=== PATIENT | male | born 1955 | race Caucasian/White ===

== ENCOUNTER 2021-09-25 05:15 | Inpatient (IN) | payer OTHER ==
[~2021-09-25] VITALS: Ht 180.3 cm; Wt 88.6 kg
[2021-09-25 06:00] LABS: EOSINOPHILS # (AUTO) 0.1 X10'3 (0-0.9); MEAN CORPUSCULAR HEMOGLOBIN 29.9 PG (27.0-31.0); MONOCYTES # (AUTO) 0.3 X10'3 (0-0.9); NEUTROPHILS # (AUTO) 2.7 X10'3 (1.8-7.7); WHITE BLOOD COUNT 3.6 X10'3 (4.5-11.0)
[2021-09-25 06:02] LABS: BASOPHILS % (AUTO) 0.6 % (0-1); EOSINOPHILS % (AUTO) 3.9 % (0-6); LYMPHOCYTES # (AUTO) 0.5 X10'3 (1.1-4.8); LYMPHOCYTES % (AUTO) 12.6 % (21-51); MEAN CORPUSCULAR HGB CONC 34.2 g/dL (33.0-36.5); MEAN CORPUSCULAR VOLUME 87.6 FL (78-98); MEAN PLATELET VOLUME 6.9 FL (7.4-10.4); MONOCYTES % (AUTO) 9.1 % (2-12); NEUTROPHILS % (AUTO) 73.8 % (42-75); PLATELET COUNT 239 X10'3 (140-440); RED BLOOD COUNT 5.02 X10'6 (4.70-6.10); RED CELL DISTRIBUTION WIDTH 13.5 % (11.5-14.5)
[2021-09-25 06:11] LABS: ALANINE AMINOTRANSFERASE 48 U/L (12-78); ALBUMIN 4.1 G/DL (3.4-5.0); ALBUMIN/GLOBULIN RATIO 1.2 (1.1-1.5); ALKALINE PHOSPHATASE 64 IU/L (46-116); ANION GAP 12 (8-16); ASPARTATE AMINO TRANSFERASE 22 U/L (10-37); BILIRUBIN,TOTAL 0.3 MG/DL (0.1-1.0); BLOOD UREA NITROGEN 20 MG/DL (7-18); BUN/CREATININE RATIO 19.2 (5.4-32.0); CALCIUM 8.9 MG/DL (8.5-10.1); CHLORIDE 103 MMOL/L (99-107); CREATININE 1.04 MG/DL (0.60-1.10); GLUCOSE 128 MG/DL (70-104); POTASSIUM 3.7 MMOL/L (3.5-5.1); SODIUM 140 MMOL/L (135-145); TOTAL PROTEIN 7.6 G/DL (6.4-8.2); eGFR 72 ML/MIN
--- NOTE | 2021-09-25 06:30 | NUR ---
first contact with pt. found high fowlers in bed, reports left side chest pain 0.5/10. md flaquito aware of elevated troponin. connected to monitor technician, no needs at this time.
[2021-09-25] MEDS ORDERED: potassium CL 10mEq/100ml bag 100 ML IV PRN (08:25)
[2021-09-25] MEDS ORDERED: morphine 2 MG/ML inj. syringe IV PRN (08:25)
[2021-09-25] MEDS ORDERED: magnesium 4gm in 100ml NS 100 ML IV PRN (08:25)
[2021-09-25] MEDS ORDERED: magnesium Cl slow-release 64mg tablet PO PRN (08:25)
[2021-09-25] MEDS ORDERED: PERFLUTREN PROTEIN-A MICROSPHR (Optison) 0.22 MG/ML 3ML VIAL IV ONE (08:25)
[2021-09-25] MEDS ORDERED: acetaminophen 325mg tablet PO PRN (08:25)
[2021-09-25] MEDS ORDERED: POTASSIUM BICARB 20meq eff tab 20 MEQ TABLET.EFF PO PRN ×2 (08:25)
[2021-09-25] MEDS ORDERED: magnesium 2GM in 50ml NS 50 ML IV PRN (08:25)
[2021-09-25 08:55] LABS: MAGNESIUM 2.2 MG/DL (1.5-2.4); POTASSIUM 4.1 MMOL/L (3.5-5.1)
[2021-09-25] MEDS ORDERED: ATOR20TA PO (08:59)
--- NOTE | 2021-09-25 09:25 | NUR ---
provider at bedside.
--- NOTE | 2021-09-25 09:41 | NUR ---
breakfast tray provided for pt.
[2021-09-25] MEDS ORDERED: heparin 10,000 units/1 ML INJ IV ONE (10:05)
[2021-09-25 10:20] LABS: BASOPHILS % (AUTO) 0.4 % (0-1); EOSINOPHILS % (AUTO) 0.8 % (0-6); HEMATOCRIT 44.2 % (42.0-52.0); LYMPHOCYTES # (AUTO) 0.6 X10'3 (1.1-4.8); LYMPHOCYTES % (AUTO) 12.1 % (21-51); MEAN CORPUSCULAR HEMOGLOBIN 30.1 PG (27.0-31.0); MEAN CORPUSCULAR HGB CONC 33.9 g/dL (33.0-36.5); MEAN CORPUSCULAR VOLUME 88.8 FL (78-98); MEAN PLATELET VOLUME 6.6 FL (7.4-10.4); MONOCYTES # (AUTO) 0.3 X10'3 (0-0.9); MONOCYTES % (AUTO) 7.1 % (2-12); NEUTROPHILS # (AUTO) 3.8 X10'3 (1.8-7.7); NEUTROPHILS % (AUTO) 79.6 % (42-75); PLATELET COUNT 260 X10'3 (140-440); RED BLOOD COUNT 4.98 X10'6 (4.70-6.10); RED CELL DISTRIBUTION WIDTH 13.6 % (11.5-14.5); WHITE BLOOD COUNT 4.8 X10'3 (4.5-11.0)
[2021-09-25] MEDS: heparin 25,000 UNIT/250ml bag 250 ML IV SCH (10:25)
[2021-09-25] MEDS ORDERED: ATOR10TA PO (10:26)
--- NOTE | 2021-09-25 10:30 | NUR ---
pt denies chest pain, sob.
[2021-09-25 10:32] LABS: APTT 24 SECONDS (22-32)
--- NOTE | 2021-09-25 12:00 | NUR ---
meal tray provided.
--- NOTE | 2021-09-25 12:15 | NUR ---
pt denies chest pain, sob.
--- NOTE | 2021-09-25 13:15 | NUR ---
ambulated with steady gait to/from restroom, no distress.
--- NOTE | 2021-09-25 14:10 | NUR ---
pt denies chest pain, sob.
--- NOTE | 2021-09-25 16:30 | NUR ---
pt denies chest pain, sob.
--- NOTE | 2021-09-25 17:50 | NUR ---
pt continues to deny chest pain, sob.
--- NOTE | 2021-09-25 18:15 | NUR ---
meal tray provided.
[2021-09-25] MEDS: heparin 10,000 units/1 ML INJ IV PRN (18:17)
[2021-09-25] MEDS: K and/or MAG REPLACEMENT MC SCH (20:00)
[2021-09-25] MEDS ORDERED: heparin, porcine 5000 units/ml vial SQ SCH (20:00)
[2021-09-25 20:34] VITALS: BP 130/74
--- NOTE | 2021-09-25 21:45 | NUR ---
Patient requesting to clip his own groin for Heart Cath procedure. computer systems information director aware. patient also declining skin check at this time. Patient educated on use of clipper and verbalizes that he is able to do it. Will continue to monitor and educate patient.
[2021-09-25 22:00] VITALS: BP 104/52
[2021-09-26] VITALS (8 sets, daily range): BP systolic 101–134; BP diastolic 46–79
[2021-09-26] MEDS: heparin 10,000 units/1 ML INJ IV PRN ×2 (01:35→13:52)
[2021-09-26] MEDS ORDERED: nitroGLYCERIN-Tridil 50MG/D5W 250 ML IV ONE (05:14)
[2021-09-26] MEDS ORDERED: LIDOcaine 1% 30ml preserv. free vial ONE (05:14)
[2021-09-26] MEDS ORDERED: fentaNYL/PF 50MCG/1 ML 2ML syringe ONE (05:14)
[2021-09-26] MEDS ORDERED: midazolam 1 mg/ML 2ml injection ONE (05:14)
[2021-09-26] MEDS ORDERED: heparin 1,000unit/ml 10ml vial 10 ML ONE (05:14)
[2021-09-26] MEDS ORDERED: verapamil 2.5 mg/ml inj IV ONE (05:14)
[2021-09-26] MEDS ORDERED: iohexol 350MG/ML 100ml bottle IV ONE (05:15)
--- NOTE | 2021-09-26 06:30 | NUR ---
Received pt report from Brigid LAU. Pt taken to bottle label inspector, will await pt return.
[2021-09-26 06:36] LABS: BASOPHILS % (AUTO) 0.6 % (0-1); EOSINOPHILS # (AUTO) 0.2 X10'3 (0-0.9); EOSINOPHILS % (AUTO) 4.2 % (0-6); HEMATOCRIT 43.6 % (42.0-52.0); HEMOGLOBIN 14.8 g/dl (14.0-17.9); LYMPHOCYTES # (AUTO) 0.9 X10'3 (1.1-4.8); LYMPHOCYTES % (AUTO) 20.1 % (21-51); MEAN CORPUSCULAR HEMOGLOBIN 30.1 PG (27.0-31.0); MEAN CORPUSCULAR VOLUME 88.6 FL (78-98); MEAN PLATELET VOLUME 7.1 FL (7.4-10.4); MONOCYTES # (AUTO) 0.4 X10'3 (0-0.9); NEUTROPHILS % (AUTO) 66.1 % (42-75); PLATELET COUNT 245 X10'3 (140-440); RED BLOOD COUNT 4.92 X10'6 (4.70-6.10); RED CELL DISTRIBUTION WIDTH 13.7 % (11.5-14.5); WHITE BLOOD COUNT 4.6 X10'3 (4.5-11.0)
[2021-09-26 06:47] LABS: ALBUMIN 3.9 G/DL (3.4-5.0); ANION GAP 12 (8-16); BLOOD UREA NITROGEN 18 MG/DL (7-18); BUN/CREATININE RATIO 18.6 (5.4-32.0); CALCIUM 8.8 MG/DL (8.5-10.1); CHLORIDE 105 MMOL/L (99-107); CHOL/HDL RATIO 5.4 (0.00-4.99); CHOLESTEROL 257 MG/DL (0-200); CREATININE 0.97 MG/DL (0.60-1.10); GLUCOSE 116 MG/DL (70-104); HDL CHOLESTEROL 48 MG/DL (35-60); LDL CHOLESTEROL 189 MG/DL (50-100); MAGNESIUM 2.2 MG/DL (1.5-2.4); SODIUM 141 MMOL/L (135-145); TOTAL CARBON DIOXIDE 23.8 MMOL/L (24-32); TRIGLYCERIDES 98 MG/DL (20-135); eGFR 78 ML/MIN
[2021-09-26] MEDS ORDERED: HYDROcodone/acetaminophen 10/325mg tab PO PRN (07:00)
[2021-09-26] MEDS ORDERED: HYDROcodone/acetaminophen 5mg/325mg tablet PO PRN (07:00)
--- NOTE | 2021-09-26 07:05 | NUR ---
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 Family at bedside.
[2021-09-26] MEDS: heparin 25,000 UNIT/250ml bag 250 ML IV SCH ×3 (07:29→13:54)
--- NOTE | 2021-09-26 07:30 | NUR ---
2cc Removed from Vasc Band no s/s of bleeding or hematoma.
[2021-09-26] MEDS: K and/or MAG REPLACEMENT MC SCH (08:00)
[2021-09-26] MEDS ORDERED: atorvastatin 20mg tablet PO SCH (08:00)
--- NOTE | 2021-09-26 08:02 | NUR ---
3 CC air removed from Vasc Band. No s/s of bleeding or hematoma.
--- NOTE | 2021-09-26 09:17 | NUR ---
Heparin gtt stopped due to high PTT of 139. Will stop gtt for 2 hours.
--- NOTE | 2021-09-26 10:03 | NUR ---
Vasc Band removed, dressing applied and coban wrap. No s/s of bleeding or hematoma. Will continue to monitor.
--- NOTE | 2021-09-26 18:39 | NUR ---
Report given to Brigid LAU. Bed assignment given for transfer to [facility]. Oncoming RN will coordinate transfer.
--- NOTE | 2021-09-26 19:09 | NUR ---
Spoke to [facility]. Patient getting picked up @1913. Report called to NICHOLAS Silva. spoke to JUDI Tong who stated that RN who is getting the patient willl call me back in a few for report. Will reattempt in a few
--- NOTE | 2021-09-26 19:42 | NUR ---
Patient transferred to [facility] via [facility]. VSS, on heparin drip. Report given to JUDI Stone.
== END 2021-09-26 19:40 | disposition short-term general hospital (02) | DRG 282 ==
LOC: ER 05:16 → ED HOLD 12:22 → PCU 3S 20:33
PROVIDERS: ADMIT Internal Medicine; ATTEND Internal Medicine
PROC: 4A023N7 Measurement of Cardiac Sampling and Pressure, Left Heart, Percutaneous Approach (ICD-10-PCS; principal; 2021-09-26)
PROC: B2111ZZ Fluoroscopy of Multiple Coronary Arteries using Low Osmolar Contrast (ICD-10-PCS; 2021-09-26)
PROC: B3111ZZ Fluoroscopy of Right Brachiocephalic-Subclavian Artery using Low Osmolar Contrast (ICD-10-PCS; 2021-09-26)
PROC: B3121ZZ Fluoroscopy of Left Subclavian Artery using Low Osmolar Contrast (ICD-10-PCS; 2021-09-26)
DX: I21.4 Non-ST elevation (NSTEMI) myocardial infarction (principal); Z20.822 Contact with and (suspected) exposure to COVID-19; E78.00 Pure hypercholesterolemia, unspecified; I25.119 Atherosclerotic heart disease of native coronary artery with unspecified angina pectoris; E78.5 Hyperlipidemia, unspecified; Z85.810 Personal history of malignant neoplasm of tongue; Z92.21 Personal history of antineoplastic chemotherapy; Z92.3 Personal history of irradiation; Z82.49 Family history of ischemic heart disease and other diseases of the circulatory system; Z91.19 Patient's noncompliance with other medical treatment and regimen; Z79.899 Other long term (current) drug therapy
CPT/HCPCS: 36415; 71045; 80048; 80053; 80061; 83735; 83880; 84132; 84484; 85025; 85610; 85730; 87081; 93306; 93458; 96374; 99152; 99153; 99285; A4620; A6258; C1769; C1894; G0378; J1644; J2250; J3010; J3490; J7030; Q9967

== ENCOUNTER 2022-08-19 17:15 | Emergency (ER) | payer OTHER ==
[~2022-08-19] VITALS: Ht 177.8 cm; Wt 90.9 kg
[~2022-08-19 17:15] MED LIST: ATOR10TA PO
[2022-08-19 17:38] VITALS: BP 134/77
[2022-08-19] MEDS ORDERED: LIDOcaine 1.5% w/epinephrine 1:200,000 5ml ampul IJ ONE (17:40)
[2022-08-19] MEDS ORDERED: LIDOcaine 1% W/epiNEPHrine 1:100,000 20ml vial IJ ONE (17:45)
[2022-08-19] MEDS ORDERED: TETanus/Pertussis (Acell)/Diphther VAC/PF (Tdap-Adult) 0.5ml syringe IMVAC ONE (18:30)
[2022-08-19] MEDS ORDERED: CEPH250T PO (18:33)
== END 2022-08-19 19:09 | disposition home or self-care (01) ==
LOC: ER 17:16
DX: S61.412A Laceration without foreign body of left hand, initial encounter (principal); I51.9 Heart disease, unspecified; E78.00 Pure hypercholesterolemia, unspecified; Z79.899 Other long term (current) drug therapy; W45.8XXA Other foreign body or object entering through skin, initial encounter; Y93.89 Activity, other specified; Y92.89 Other specified places as the place of occurrence of the external cause; Y99.8 Other external cause status
CPT/HCPCS: 12004; 90471; 90715; 99283; A6222; J3490; A6258; A6449

== ENCOUNTER 2024-02-20 17:43 | Emergency (ER) | payer OTHER ==
[~2024-02-20] VITALS: Ht 180.3 cm; Wt 88.5 kg
[2024-02-20] MEDS: LIDOcaine 1% W/epiNEPHrine 1:200,000 10ml vial IJ ONE (18:10)
[2024-02-20] MEDS ORDERED: ketorolac trometh 15mg/ml vial 15 MG/ML ML IV ONE (18:15)
[2024-02-20] MEDS: LIDOcaine 1% W/epiNEPHrine 1:100,000 20ml vial IJ ONE (18:20)
[2024-02-20] MEDS ORDERED: iohexol 300mg/ml 100ml inj. ONE (18:28)
[2024-02-20 18:55] LABS: BASOPHILS % (AUTO) 0.3 % (0-1); EOSINOPHILS % (AUTO) 0.4 % (0-6); HEMATOCRIT 33.9 % (42.0-52.0); HEMOGLOBIN 11.8 g/dl (14.0-17.9); LYMPHOCYTES # (AUTO) 0.5 X10'3 (1.1-4.8); LYMPHOCYTES % (AUTO) 5.6 % (21-51); MEAN CORPUSCULAR HEMOGLOBIN 31.6 PG (27.0-31.0); MEAN CORPUSCULAR HGB CONC 34.8 g/dL (33.0-36.5); MEAN CORPUSCULAR VOLUME 90.7 FL (78-98); MEAN PLATELET VOLUME 6.7 FL (7.4-10.4); MONOCYTES # (AUTO) 0.6 X10'3 (0-0.9); MONOCYTES % (AUTO) 7.1 % (2-12); NEUTROPHILS % (AUTO) 86.6 % (42-75); PLATELET COUNT 201 X10'3 (140-440); RED BLOOD COUNT 3.73 X10'6 (4.70-6.10); RED CELL DISTRIBUTION WIDTH 13.3 % (11.5-14.5); WHITE BLOOD COUNT 9.2 X10'3 (4.5-11.0)
[2024-02-20] MEDS: acetaminophen 1,000mg/100ml IV 100 ML IV ONE (19:06)
[2024-02-20] MEDS: normal saline 1000ML IV soln IVB ONE (19:07)
[2024-02-20 19:10] LABS: ALANINE AMINOTRANSFERASE 46 U/L (12-78); ALBUMIN 3.4 G/DL (3.4-5.0); ALBUMIN/GLOBULIN RATIO 1.3 (1.1-1.5); ALKALINE PHOSPHATASE 58 IU/L (46-116); ANION GAP 9 (8-16); ASPARTATE AMINO TRANSFERASE 27 U/L (10-37); BILIRUBIN,TOTAL 0.6 MG/DL (0.1-1.0); BLOOD UREA NITROGEN 27 MG/DL (7-18); BUN/CREATININE RATIO 24.3 (10.0-20.0); CALCIUM 8.4 MG/DL (8.5-10.1); CHLORIDE 99 MMOL/L (99-107); CREATININE 1.11 MG/DL (0.60-1.10); GLUCOSE 110 MG/DL (70-104); POTASSIUM 3.7 MMOL/L (3.5-5.1); SODIUM 131 MMOL/L (135-145); TOTAL CARBON DIOXIDE 23.2 MMOL/L (24-32); eCRCL 70 ML/MIN; eGFR 66 ML/MIN
[2024-02-20 19:22] LABS: INR 1.1 INR
[2024-02-20 20:20] VITALS: BP 110/57; PULSE 79; RESP 18; TEMP 97.8; O2SAT 98
== END 2024-02-20 20:40 | disposition short-term general hospital (02) ==
LOC: ER 17:44
DX: S41.112A Laceration without foreign body of left upper arm, initial encounter (principal); S37.032A Laceration of left kidney, unspecified degree, initial encounter; I25.10 Atherosclerotic heart disease of native coronary artery without angina pectoris; E78.00 Pure hypercholesterolemia, unspecified; R41.0 Disorientation, unspecified; Z79.899 Other long term (current) drug therapy; Z95.1 Presence of aortocoronary bypass graft; W19.XXXA Unspecified fall, initial encounter; Y93.89 Activity, other specified; Y92.89 Other specified places as the place of occurrence of the external cause; Y99.8 Other external cause status
CPT/HCPCS: 12002; 36415; 70450; 71250; 72125; 73080; 73110; 74177; 80053; 85025; 85610; 93005; 96374; 99291; J0131; J7030; Q9967; A6446; A6449